=== PATIENT | female | born 1965 | race Caucasian/White ===

== ENCOUNTER → 2020-09-22 | Outpatient (CLI) | payer MEDICARE | END | disposition home or self-care (01) | LOC: CFH 08:41 | PROVIDERS: ATTEND Internal Medicine Cardiovascular Disease | DX: Z01.810 Encounter for preprocedural cardiovascular examination (principal); E78.5 Hyperlipidemia, unspecified | CPT/HCPCS: 93306 ==

== ENCOUNTER 2020-10-20 05:46 | Day surgery (SDC) | payer MEDICARE ==
[~2020-10-20] VITALS: Ht 170.2 cm; Wt 80.0 kg
[2020-10-20] MEDS ORDERED: OMEG-157 PO (06:26)
[2020-10-20] MEDS ORDERED: FURO-93 PO (06:26)
[2020-10-20] MEDS ORDERED: GABA300C PO (06:26)
[2020-10-20] MEDS ORDERED: ATOR40TA PO (06:26)
[2020-10-20] MEDS ORDERED: VITA200C7 PO (06:26)
[2020-10-20] MEDS ORDERED: OXYC-380 PO (06:26)
[2020-10-20] MEDS ORDERED: IBUP200T49 PO (06:26)
[2020-10-20] MEDS ORDERED: CHOL10003 PO (06:26)
[2020-10-20] MEDS ORDERED: POTA10TA PO (06:26)
[2020-10-20] MEDS ORDERED: SODIUM CHLORIDE 0.9% 1,000 ML IV ONE (06:30)
[2020-10-20] MEDS ORDERED: PROPOFOL 10 MG/ML, 20ML ONE (07:54)
== END 2020-10-20 09:26 | disposition home or self-care (01) ==
LOC: CACL 05:46
PROVIDERS: ATTEND Internal Medicine Cardiovascular Disease
DX: Z01.810 Encounter for preprocedural cardiovascular examination (principal); R93.1 Abnormal findings on diagnostic imaging of heart and coronary circulation; M54.9 Dorsalgia, unspecified; I10 Essential (primary) hypertension; E78.2 Mixed hyperlipidemia; E66.9 Obesity, unspecified; Z68.29 Body mass index [BMI] 29.0-29.9, adult; Z20.822 Contact with and (suspected) exposure to COVID-19; Z79.891 Long term (current) use of opiate analgesic; Z79.899 Other long term (current) drug therapy; Z88.5 Allergy status to narcotic agent; Z98.84 Bariatric surgery status
CPT/HCPCS: 93312; 93321; 93325; J2704; U0003

== ENCOUNTER 2020-12-14 08:00 | Outpatient (CLI) | payer MEDICARE, MEDICAID ==
[~2020-12-14] VITALS: Ht 170.2 cm; Wt 74.5 kg
[~2020-12-14 08:00] MED LIST: ATOR40TA PO; CHOL10003 PO; FURO-93 PO; GABA300C PO; IBUP200T49 PO; OMEG-157 PO; OXYC-380 PO; POTA10TA PO; VITA200C7 PO
[2020-12-14] MEDS ORDERED: METH-640 PO (11:04)
[2020-12-14] MEDS ORDERED: BUDE8.43 NAS (11:04)
[2020-12-14] MEDS ORDERED: POTA500C PO (11:04)
[2020-12-14 11:47] LABS: BASOPHILS % (AUTO) 1 % (0-1); EOSINOPHILS % (AUTO) 2 % (1-7); LYMPHOCYTES % (AUTO) 22 % (22-44); MEAN CORPUSCULAR HEMOGLOBIN 33.5 pg (27.0-34.8); MEAN CORPUSCULAR HGB CONC 34.2 g/dL (32.4-35.8); MEAN PLATELET VOLUME 8.1 fL (7.4-10.4); MONOCYTES % (AUTO) 6 % (2-9); NEUTROPHILS % (AUTO) 70 % (42-75); PLATELET COUNT 250 x10^3/uL (130-400); RED BLOOD COUNT 4.05 x10^6/uL (3.82-5.3); RED CELL DISTRIBUTION WIDTH 14.1 % (9.6-15.2)
[2020-12-14 11:54] LABS: ALANINE AMINOTRANSFERASE 18 U/L (12-78); ALBUMIN 3.2 g/dL (3.4-5.0); ANION GAP 7 mmol/L (5-15); CALCIUM 9.4 mg/dL (8.5-10.1); CHLORIDE 111 mmol/L (98-107); CREATININE 0.73 mg/dL (0.55-1.02); INTERNATIONAL NORMALIZED RATIO 1.02 (0.93-1.1); PROTHROMBIN TIME 10.9 Seconds (9.6-11.5)
[2020-12-14 11:55] LABS: HCT (SEDRATE) 39.8 % (34.6-47.8)
[2020-12-14 11:56] LABS: ALKALINE PHOSPHATASE 48 U/L (45-117); BILIRUBIN,TOTAL 0.5 mg/dL (0.2-1.0); TOTAL PROTEIN 6.6 g/dL (6.4-8.2)
== END 2020-12-14 23:59 | disposition home or self-care (01) ==
LOC: STAR 08:00 → OR 09:59 → STAR 23:59 → EDSTATUS 12-16 08:00
PROVIDERS: ATTEND Orthopaedic Surgery Orthopaedic Surgery of the Spine
DX: Z01.810 Encounter for preprocedural cardiovascular examination (principal); M16.11 Unilateral primary osteoarthritis, right hip; Z20.822 Contact with and (suspected) exposure to COVID-19; Z79.01 Long term (current) use of anticoagulants; Z79.899 Other long term (current) drug therapy
CPT/HCPCS: 36415; 71046; 80053; 83036; 85025; 85610; 85651; 85730; 87081; 93005; U0003; U0005

== ENCOUNTER → 2020-12-26 | Outpatient (CLI) | payer MEDICARE, MEDICAID ==
[~2020-12-26] MED LIST changes: +BUDE8.43 NAS; +METH-640 PO; +POTA500C PO
== END | disposition home or self-care (01) ==
LOC: STAR 15:00
PROVIDERS: ATTEND Orthopaedic Surgery Orthopaedic Surgery of the Spine
DX: Z20.822 Contact with and (suspected) exposure to COVID-19 (principal)
CPT/HCPCS: U0003; U0005

== ENCOUNTER 2020-12-30 10:55 | Inpatient (IN) | payer MEDICARE, MEDICAID ==
[~2020-12-30] VITALS: Ht 170.2 cm; Wt 84.3 kg
[~2020-12-30 10:55] MED LIST changes: -OXYC-380 PO; +OXYC-501 PO
[2020-12-30 11:18] VITALS: BP 103/69
[2020-12-30] MEDS ORDERED: LACTATED RINGERS 1,000 ML IV SCH (11:30)
[2020-12-30] MEDS ORDERED: CHLORHEXIDINE 15 ML UDC PO ONE (11:30)
[2020-12-30] MEDS ORDERED: VANCOMYCIN PMX 1GM/200ML 200 ML IV ONE (11:30)
[2020-12-30] MEDS ORDERED: VANCOMYCIN 1,800 MG in SODIUM CHLORIDE 0.9% 250 ML IV ONE (12:00)
[2020-12-30] MEDS ORDERED: BUPIVACAINE/PF 0.5% ONE (14:20)
[2020-12-30] MEDS ORDERED: TRANEXAMIC ACID 100 MG/ML, 10ML ONE (14:21)
[2020-12-30] MEDS ORDERED: VANCOMYCIN 1,000 MG ONE (14:21)
[2020-12-30] MEDS ORDERED: EPINEPHRINE 1 MG/ML, 1ML ONE (14:21)
[2020-12-30] MEDS ORDERED: FENTANYL PF 250 MCG/5ML ONE ×3 (14:22→16:39)
[2020-12-30] MEDS ORDERED: MIDAZOLAM 1 MG/ML, 2ML ONE (14:22)
[2020-12-30] MEDS ORDERED: HYDROmorphone 1 MG/ML, 1ML INJ ONE (16:16)
[2020-12-30] MEDS ORDERED: KETAMINE 50 MG/ML, 10ML ONE (16:53)
[2020-12-30] MEDS ORDERED: DEXAMETHASONE 4 MG/ML, 1ML ONE (17:44)
[2020-12-30] MEDS ORDERED: CEFAZOLIN 1,000 MG ONE (17:44)
[2020-12-30] MEDS ORDERED: ROCURONIUM 10MG/ML,5ML ONE (17:44)
[2020-12-30] MEDS ORDERED: FENTANYL PF 100 MCG/2ML ONE ×2 (17:44→18:03)
[2020-12-30] MEDS ORDERED: ONDANSETRON 2MG/ML, 2ML ONE ×2 (17:44→18:23)
[2020-12-30] MEDS ORDERED: SUCCINYLCHOLINE 20 MG/ML, 10ML ONE (17:44)
[2020-12-30] MEDS ORDERED: OXYcodone 5 MG/5 ML ORAL.SOL UDC ONE (17:44)
[2020-12-30] MEDS ORDERED: PROPOFOL 10 MG/ML, 20ML ONE (17:44)
[2020-12-30] MEDS ORDERED: GLYCOPYRROLATE 0.2MG/1ML, 5ML ONE (17:44)
[2020-12-30] MEDS ORDERED: NEOSTIGMINE 1 MG/ML, 10ML ONE (17:44)
[2020-12-30] MEDS: FENTANYL PF 100 MCG/2ML IV PRN ×4 (17:57→18:20)
[2020-12-30] MEDS ORDERED: DIAZEPAM 5 MG TABLET PO PRN (18:00)
[2020-12-30] MEDS ORDERED: ACETAMINOPHEN 500 MG TABLET PO PRN (18:00)
[2020-12-30] MEDS ORDERED: LABETALOL 5MG/ML, 20ML IV PRN (18:00)
[2020-12-30] MEDS ORDERED: DIPHENHYDRAMINE 50 MG CAPSULE PO PRN (18:00)
[2020-12-30] MEDS ORDERED: SODIUM CHLORIDE 0.9% 1,000 ML IV PRN (18:00)
[2020-12-30] MEDS ORDERED: BISACODYL 10 MG SUPP PR PRN (18:00)
[2020-12-30] MEDS ORDERED: ONDANSETRON 2MG/ML, 2ML IV PRN (18:00)
[2020-12-30] MEDS ORDERED: HYDROmorphone 2MG TABLET PO PRN (18:00)
[2020-12-30] MEDS ORDERED: ONDANSETRON 2MG/ML, 2ML IVPush PRN (18:00)
[2020-12-30] MEDS ORDERED: HYDROcodone/APAP 5/325 TABLET PO PRN (18:00)
[2020-12-30] MEDS ORDERED: DIPHENHYDRAMINE 50 MG/ML, 1ML IVPush PRN (18:00)
[2020-12-30] MEDS ORDERED: DIPHENHYDRAMINE 50 MG/ML, 1ML IM PRN (18:00)
[2020-12-30] MEDS ORDERED: MEPERIDINE/PF 25MG/0.5ML IVPush PRN (18:00)
[2020-12-30] MEDS ORDERED: LORazepam 2 MG/ML, 1ML IVPush PRN (18:00)
[2020-12-30] MEDS ORDERED: PROMETHAZINE 25 MG/ML, 1ML IM PRN (18:00)
[2020-12-30] MEDS ORDERED: MAGNESIUM HYDROXIDE 8%, 30ML UDC PO PRN (18:00)
[2020-12-30] MEDS ORDERED: TRANEXAMIC ACID 100 MG/ML, 10ML TP ONE (18:00)
[2020-12-30] MEDS ORDERED: SENNA/DOCUSATE TABLET PO PRN (18:00)
[2020-12-30] MEDS ORDERED: OXYcodone IR 5MG TABLET PO PRN (18:00)
[2020-12-30] MEDS ORDERED: OXYcodone 5 MG/5 ML ORAL.SOL UDC PO PRN (18:00)
[2020-12-30] MEDS ORDERED: DIAZEPAM 5 MG/ML, 2ML IVPush PRN (18:00)
[2020-12-30] MEDS ORDERED: ACETAMINOPHEN 325 MG TABLET PO PRN (18:00)
[2020-12-30] MEDS ORDERED: METHOCARBAMOL 1,000 MG in DEXTROSE 5% 100 ML IV PRN (18:00)
[2020-12-30] MEDS ORDERED: PROMETHAZINE 25 MG/ML, 1ML IVPush PRN (18:00)
[2020-12-30] MEDS ORDERED: KETOROLAC 30 MG/1 ML IVPush ONE (18:00)
[2020-12-30] MEDS ORDERED: hydrALAzine 20 MG/ML, 1ML IV PRN (18:00)
[2020-12-30] MEDS ORDERED: LABETALOL 5MG/ML, 20ML IVPush PRN (18:00)
[2020-12-30] MEDS ORDERED: PROMETHAZINE 25 MG SUPP PR PRN (18:00)
[2020-12-30] MEDS ORDERED: LORazepam 1MG TABLET PO PRN (18:00)
[2020-12-30] MEDS ORDERED: HYDROmorphone 2 MG/ML, 1ML ONE (18:03)
[2020-12-30] MEDS: HYDROmorphone 1 MG/ML, 1ML INJ IVPush PRN ×3 (18:17→18:51)
[2020-12-30] MEDS ORDERED: TRANEXAMIC ACID 1,000 MG in SODIUM CHLORIDE 0.9% 100 ML IVPB ONE (18:30)
[2020-12-30] MEDS ORDERED: DEXAMETHASONE 4 MG/ML, 1ML IVPush PRN (18:30)
[2020-12-30 20:05] VITALS: BP 116/84
[2020-12-30] MEDS ORDERED: DICLOFENAC MC SCH (20:30)
[2020-12-30] MEDS ORDERED: KETOROLAC MC SCH (20:30)
[2020-12-30] MEDS ORDERED: ZOLPIDEM 5MG TABLET PO PRN (21:00)
[2020-12-30] MEDS: ASPIRIN 325 MG TABLET PO SCH (21:19)
[2020-12-30] MEDS: OXYcodone IR 5MG TABLET PO PRN (21:19)
[2020-12-30] MEDS: METHOCARBAMOL 1,000 MG in DEXTROSE 5% 100 ML IV SCH (21:21)
[2020-12-30] MEDS: [UNRECOGNIZED DRUG - REMARK] MC SCH (23:30)
[2020-12-31 00:29] VITALS: BP 91/57
[2020-12-31] MEDS: NS + 20MEQ KCL 1,000 ML IV SCH ×3 (01:22→23:38)
[2020-12-31] MEDS: CEFAZOLIN PMX 1GM/50ML 50 ML IVPB SCH ×2 (01:23→09:17)
[2020-12-31] MEDS: OXYcodone IR 5MG TABLET PO PRN ×6 (01:23→20:22)
[2020-12-31 04:34] VITALS: BP 98/58
[2020-12-31] MEDS: GABAPENTIN 300 MG CAPSULE PO SCH ×4 (05:21→20:22)
[2020-12-31] MEDS: METHOCARBAMOL 1,000 MG in DEXTROSE 5% 100 ML IV SCH ×3 (05:21→21:36)
[2020-12-31 05:33] LABS: BASOPHILS % (AUTO) 0 % (0-1); EOSINOPHILS % (AUTO) 0 % (1-7); LYMPHOCYTES % (AUTO) 12 % (22-44); MEAN CORPUSCULAR HEMOGLOBIN 34.1 pg (27.0-34.8); MEAN CORPUSCULAR HGB CONC 34.6 g/dL (32.4-35.8); MEAN PLATELET VOLUME 8.7 fL (7.4-10.4); MONOCYTES % (AUTO) 6 % (2-9); NEUTROPHILS % (AUTO) 82 % (42-75); PLATELET COUNT 163 x10^3/uL (130-400); RED CELL DISTRIBUTION WIDTH 13.6 % (9.6-15.2)
[2020-12-31 07:05] VITALS: BP 90/56
[2020-12-31] MEDS: [UNRECOGNIZED DRUG - REMARK] MC SCH (07:30)
[2020-12-31] MEDS: FUROSEMIDE 20 MG TABLET PO SCH ×2 (07:53→20:21)
[2020-12-31] MEDS: ASPIRIN 325 MG TABLET PO SCH ×2 (07:53→20:22)
[2020-12-31] MEDS: KETOROLAC 30 MG/1 ML IVPush PRN ×2 (10:38→18:43)
[2020-12-31 12:40] VITALS: BP 86/52
[2020-12-31 14:05] VITALS: BP 94/59
[2020-12-31] MEDS: HYDROmorphone 2 MG/ML, 1ML IV PRN ×2 (17:23→23:29)
[2020-12-31 20:57] VITALS: BP 95/61
[2021-01-01 03:15] VITALS: BP 95/60
[2021-01-01] MEDS: KETOROLAC 30 MG/1 ML IVPush PRN ×3 (03:37→21:34)
[2021-01-01] MEDS: OXYcodone IR 5MG TABLET PO PRN ×5 (03:38→23:21)
[2021-01-01] MEDS: HYDROmorphone 2 MG/ML, 1ML IV PRN ×3 (06:05→18:06)
[2021-01-01] MEDS: METHOCARBAMOL 1,000 MG in DEXTROSE 5% 100 ML IV SCH ×2 (06:06→13:37)
[2021-01-01] MEDS: GABAPENTIN 300 MG CAPSULE PO SCH ×4 (06:06→20:24)
[2021-01-01 06:07] LABS: BASOPHILS % (AUTO) 1 % (0-1); EOSINOPHILS % (AUTO) 3 % (1-7); LYMPHOCYTES % (AUTO) 33 % (22-44); MEAN CORPUSCULAR HGB CONC 33.7 g/dL (32.4-35.8); MEAN PLATELET VOLUME 8.6 fL (7.4-10.4); MONOCYTES % (AUTO) 7 % (2-9); NEUTROPHILS % (AUTO) 56 % (42-75); PLATELET COUNT 124 x10^3/uL (130-400); RED BLOOD COUNT 2.46 x10^6/uL (3.82-5.3); RED CELL DISTRIBUTION WIDTH 13.7 % (9.6-15.2)
[2021-01-01] MEDS: NS + 20MEQ KCL 1,000 ML IV SCH ×2 (08:08→17:00)
[2021-01-01] MEDS: ASPIRIN 325 MG TABLET PO SCH ×2 (08:08→20:23)
[2021-01-01] MEDS: FUROSEMIDE 20 MG TABLET PO SCH ×2 (08:08→20:23)
[2021-01-01 09:42] VITALS: BP 91/58
[2021-01-01 13:43] VITALS: BP 101/66
[2021-01-01 20:03] VITALS: BP 97/67
[2021-01-01] MEDS: METHOCARBAMOL 750 MG TABLET PO SCH (21:34)
[2021-01-02 02:26] VITALS: BP 103/70
[2021-01-02] MEDS: OXYcodone IR 5MG TABLET PO PRN ×5 (02:47→22:24)
[2021-01-02] MEDS: NS + 20MEQ KCL 1,000 ML IV SCH ×3 (02:52→23:00)
[2021-01-02 05:17] LABS: BASOPHILS % (AUTO) 1 % (0-1); EOSINOPHILS % (AUTO) 6 % (1-7); LYMPHOCYTES % (AUTO) 36 % (22-44); MEAN CORPUSCULAR HEMOGLOBIN 34.1 pg (27.0-34.8); MEAN PLATELET VOLUME 8.4 fL (7.4-10.4); MONOCYTES % (AUTO) 6 % (2-9); NEUTROPHILS % (AUTO) 51 % (42-75); PLATELET COUNT 138 x10^3/uL (130-400); RED BLOOD COUNT 2.48 x10^6/uL (3.82-5.3); RED CELL DISTRIBUTION WIDTH 13.8 % (9.6-15.2)
[2021-01-02] MEDS: METHOCARBAMOL 750 MG TABLET PO SCH ×3 (05:48→20:36)
[2021-01-02] MEDS: GABAPENTIN 300 MG CAPSULE PO SCH ×4 (05:48→20:36)
[2021-01-02] MEDS: HYDROmorphone 2 MG/ML, 1ML IV PRN ×2 (06:48→12:30)
[2021-01-02 07:45] VITALS: BP 106/69
[2021-01-02] MEDS: ASPIRIN 325 MG TABLET PO SCH ×2 (08:28→20:36)
[2021-01-02] MEDS: FUROSEMIDE 20 MG TABLET PO SCH ×2 (08:29→20:36)
[2021-01-02] MEDS: KETOROLAC 30 MG/1 ML IVPush PRN ×2 (10:30→20:18)
[2021-01-02 13:47] VITALS: BP 102/68
[2021-01-02 18:48] VITALS: BP 102/67
[2021-01-02] MEDS ORDERED: HYDROmorphone 2 MG/ML, 1ML IV PRN (20:00)
[2021-01-03 02:02] VITALS: BP 100/67
[2021-01-03] MEDS: OXYcodone IR 5MG TABLET PO PRN ×5 (03:59→15:40)
[2021-01-03] MEDS: KETOROLAC 30 MG/1 ML IVPush PRN (04:49)
[2021-01-03 06:06] LABS: BASOPHILS % (AUTO) 1 % (0-1); EOSINOPHILS % (AUTO) 6 % (1-7); LYMPHOCYTES % (AUTO) 31 % (22-44); MEAN PLATELET VOLUME 8.6 fL (7.4-10.4); MONOCYTES % (AUTO) 5 % (2-9); NEUTROPHILS % (AUTO) 56 % (42-75); PLATELET COUNT 156 x10^3/uL (130-400); RED BLOOD COUNT 2.46 x10^6/uL (3.82-5.3); RED CELL DISTRIBUTION WIDTH 13.9 % (9.6-15.2)
[2021-01-03] MEDS: GABAPENTIN 300 MG CAPSULE PO SCH ×3 (06:20→15:39)
[2021-01-03] MEDS: METHOCARBAMOL 750 MG TABLET PO SCH ×2 (06:20→12:48)
[2021-01-03 07:10] VITALS: BP 96/60
[2021-01-03] MEDS: NS + 20MEQ KCL 1,000 ML IV SCH (08:46)
[2021-01-03] MEDS: FUROSEMIDE 20 MG TABLET PO SCH (08:50)
[2021-01-03] MEDS: ASPIRIN 325 MG TABLET PO SCH (08:50)
[2021-01-03 12:30] VITALS: BP 105/72
[2021-01-03] MEDS ORDERED: ASPI-1026 PO (14:57)
[2021-01-03] MEDS ORDERED: METH-640 PO (14:58)
[2021-01-03] MEDS ORDERED: OXYC10TA6 PO (15:02)
[2021-01-04] MEDS ORDERED: DICLOFENAC SODIUM 75 MG TABLET.DR PO SCH (18:00)
== END 2021-01-03 16:52 | disposition home health service (06) | DRG 470 ==
LOC: OUT 10:55 → 4NE 19:28 → OUT 19:48 → 4NE 19:49 → DCLOUNGE 01-03 16:42
PROVIDERS: ADMIT Orthopaedic Surgery Orthopaedic Surgery of the Spine; ATTEND Orthopaedic Surgery Orthopaedic Surgery of the Spine
PROC: 0SR90JZ Replacement of Right Hip Joint with Synthetic Substitute, Open Approach (ICD-10-PCS; principal; 2020-12-30 13:30)
DX: M16.11 Unilateral primary osteoarthritis, right hip (principal); S73.001A Unspecified subluxation of right hip, initial encounter; M25.511 Pain in right shoulder; M17.0 Bilateral primary osteoarthritis of knee; M51.36 Other intervertebral disc degeneration, lumbar region; M48.02 Spinal stenosis, cervical region; X58.XXXA Exposure to other specified factors, initial encounter; Z79.899 Other long term (current) drug therapy; Y93.89 Activity, other specified; Y92.89 Other specified places as the place of occurrence of the external cause; Y99.8 Other external cause status; Z88.5 Allergy status to narcotic agent
CPT/HCPCS: 36415; 72170; 85025; 86850; 86900; 86923; C1713; G0378; J0171; J0690; J1100; J1170; J1885; J2250; J2405; J2704; J2710; J3010; J3370; J3480; C1776; J0330; J2800; J7050; J7120